=== PATIENT | male | born 1995 | race Two or more races ===

== ENCOUNTER 2019-06-10 09:42 | Emergency (ER) | payer OTHER ==
[~2019-06-10] VITALS: Ht 180.3 cm; Wt 83.9 kg
[2019-06-10] MEDS ORDERED: KETOROLAC 60 MG/2 ML VIAL. IM ONE (10:30)
--- NOTE | 2019-06-10 10:36 | PHYS DOC ---
Past Medical History Past Medical History: Other Additional Past Medical Histor: heart murmur, bilateral arm fx, PNEUMOTHORAX Past Surgical History: No Surgical History Additional Past Surgical Histo: PNEUMOTHORAX Alcohol Use: Occasionally Drug Use: Marijuana Adult General Chief Complaint Chief Complaint: CHEST WALL PAIN HPI HPI Patient is a 24 year old male presents to the ED complaining of left-sided rib pain �3 days ago. Patient states that the pain is sharp. States it is worse with range of motion. States that he has a history of a spontaneous pneumothorax. States he wants to get checked to make sure that he does not have one. Rates the pain as 4 out of 10. States he did not take any medication for the pain. Denies shortness of breath, chest pain, weakness, dizziness, lower leg swelling, abdominal pain, injury, headache, neck pain or back pain. Review of Systems Review of Systems Constitutional: Denies fever or chills [] Eyes: Denies change in visual acuity, redness, or eye pain [] HENT: Denies nasal congestion or sore throat [] Respiratory: Denies cough or shortness of breath [] Cardiovascular: No additional information not addressed in HPI [] GI: Denies abdominal pain, nausea, vomiting, bloody stools or diarrhea [] : Denies dysuria or hematuria [] Musculoskeletal: Denies back pain or joint pain [] Integument: Denies rash or skin lesions [] Neurologic: Denies headache, focal weakness or sensory changes [] All other systems were reviewed and found to be within normal limits, except as documented in this note. Current Medications Current Medications Current Medications Medications (Trade) Dose Ordered [facility] Start Time Stop Time Status Last Admin Dose Admin Ketorolac Tromethamine (Toradol Im) 30 mg 1X ONCE 06/10/19 10:30 06/10/19 10:31 DC 06/10/19 10:25 30 MG Allergies Allergies Allergies Coded Allergies Type Severity Reaction Last Updated Verified No Known Drug Allergies 12/25/14 No Physical Exam Physical Exam Constitutional: Well developed, well nourished, no acute distress, non-toxic appearance. [] HENT: Normocephalic, atraumatic Eyes: PERRLA, EOMI, conjunctiva normal, no discharge. [] Neck: Normal range of motion, no tenderness, supple, no stridor. [] Cardiovascular:Heart rate regular rhythm, no murmur [] Lungs & Thorax: Bilateral breath sounds clear to auscultation. Mild left anterior lateral rib tenderness. Pain with lateral ROM. No overlying skin changes. [] Abdomen: Bowel sounds normal, soft, no tenderness, no masses, no pulsatile masses. [] Skin: Warm, dry, no erythema, no rash. [] Back: No tenderness, no CVA tenderness. [] Extremities: No tenderness, no cyanosis, no clubbing, ROM intact, no edema. [] Neurologic: Alert and oriented X 3, normal motor function, normal sensory function, no focal deficits noted. [] Psychologic: Affect normal, judgement normal, mood normal. [] Current Patient Data Vital Signs Vital Signs Date Time Temp Pulse Resp B/P (MAP) Pulse Ox O2 Delivery O2 Flow Rate FiO2 06/10/19 11:09 62 14 144/67 (92) 99 06/10/19 09:50 98.1 Room Air 98.1 EKG EKG Sinus rhythm at 51 BPM. No STEMI.[] Radiology/Procedures Radiology/Procedures PROCEDURE: CHEST PA & LATERAL Chest, PA and Lateral: Technique: PA and lateral views of the chest were obtained. History: Chest pain. Comparison: None. Findings: The heart and pulmonary vasculature appear within normal limits. The lungs are clear. The pleural margins are clear. Impression: No acute chest process is seen. [] Course & Med Decision Making Course & Med Decision Making Pertinent Labs and Imaging studies reviewed. (See chart for details) []Discussed imaging and EKG findings with patient. Patient's symptoms resolved w ith Toradol in the ED. States he's feeling much better. Patient's pain is reproducible with range of motion and palpation. No overlying skin changes. Discussed symptomatic treatment and [id number] medications. Discussed follow-up and reasons to return to the ED. Patient understands and agrees with plan. Dragon Disclaimer Dragon Disclaimer This electronic medical record was generated, in whole or in part, using a voice recognition dictation system. Departure Departure Impression: Primary Impression: Chest wall pain Disposition: HOME, SELF-CARE Condition: IMPROVED Referrals: NO PCP (PCP) ROMAN SARKAR MD Patient Instructions: Chest Wall Pain ELVIS MUNOZ Jun 10, 2019 10:36
--- NOTE | 2019-06-10 10:39 | RAD ---
Chest, PA and Lateral: Technique: PA and lateral views of the chest were obtained. History: Chest pain. Comparison: None. Findings: The heart and pulmonary vasculature appear within normal limits. The lungs are clear. The pleural margins are clear. Impression: No acute chest process is seen. Electronically signed by: Jr Varma MD (06/10/2019 10:36 AM) [id number]
[2019-06-10 11:09] VITALS: BP 144/67
--- NOTE | 2019-06-10 11:25 | EKG ---
[facility] [address] [place] [id number] Test Date: 2019-06-10 Test Time: 10:02:53 Pat Name: CÉSAR JESUS Department: Room: Gender: M [employer] Supervisor: HILDA ER : [id number] Requested By: ELVIS MUNOZ Order Number: [id number] Reading MD: Measurements Intervals [place] Rate: 51 P: 50 DE: 168 QRS: 66 QRSD: 88 T: 37 QT: 410 QTc: 379 Interpretive Statements SINUS RHYTHM NORMAL ECG No previous ECG available for comparison
== END 2019-06-10 11:16 | disposition home or self-care (01) ==
LOC: ER 09:42
DX: R07.89 Other chest pain (principal)
CPT/HCPCS: 71046; 93005; 96372; 99284; J1885